=== PATIENT | male | born 1985 | race Caucasian/White ===

== ENCOUNTER 2022-12-11 09:38 | Emergency (ER) | payer OTHER ==
[2022-12-11 09:59] VITALS: BP 121/77; PULSE 80; RESP 18; TEMP 97.9; BMI 34.8
[2022-12-11 11:54] LABS: BASO % 0.2 % (0-2.0); EOS % 1.7 % (0-4.5); HEMATOCRIT 38.8 % (35.4-49); HEMOGLOBIN 12.7 GM/dL (11.7-16.9); LYMPH % 25.7 % (8-40); MCH 26.6 pg (25.7-33.7); MCHC 32.8 g/dl (32.0-35.9); MEAN CELL VOLUME 81.3 fl (80-96); MEAN PLT VOLUME 8.1 fl (7.5-11.1); NEUT % 65.4 % (42.8-82.8); PLATELET COUNT 253 10^3/uL (134-434); RBC 4.77 M/mm3 (4.00-5.60); RDW 13.6 % (11.9-15.9); WHITE BLOOD COUNT 8.8 K/mm3 (4.0-10.0)
[2022-12-11 12:09] LABS: CALCIUM 9.3 mg/dL (8.5-10.1)
[2022-12-11 12:10] LABS: ALBUMIN 4.1 g/dl (3.4-5.0); BLOOD UREA NITROGEN 10.7 mg/dL (7-18)
[2022-12-11 12:11] LABS: URIC ACID 8.1 mg/dL (2.6-7.2)
[2022-12-11 12:14] LABS: BILIRUBIN,TOTAL 0.3 mg/dL (0.2-1)
[2022-12-11 12:15] LABS: TOT PROT 7.8 g/dl (6.4-8.2)
[2022-12-11] MEDS ORDERED: COLCHICINE 0.6 MG CAP PO ONE ×2 (12:20→13:28)
[2022-12-11] MEDS ORDERED: COLCHICINE 0.6 MG TAB ONE ×2 (12:29→13:32)
== END 2022-12-11 13:47 | disposition home or self-care (01) ==
LOC: JER 09:38
DX: M10.071 Idiopathic gout, right ankle and foot (principal)
CPT/HCPCS: 36415; 73630-TC-LT; 80053; 84550; 85025; 99284-25

== ENCOUNTER 2023-10-27 15:10 | Emergency (ER) | payer OTHER ==
[2023-10-27 15:31] VITALS: BP 101/78; PULSE 94; RESP 20; TEMP 98.1; BMI 31.1
[2023-10-27] MEDS ORDERED: KETOROLAC TROMETHAMINE 30 MG/1 ML VIAL ONE (16:40)
[2023-10-27] MEDS: KETOROLAC TROMETHAMINE 15 MG/ML VIAL IM ONE (16:57)
== END 2023-10-27 17:15 | disposition home or self-care (01) ==
LOC: JERFT 15:10
PROC: 3E0233Z Introduction of Anti-inflammatory into Muscle, Percutaneous Approach (ICD-10-PCS; principal; 2023-10-27)
DX: R22.41 Localized swelling, mass and lump, right lower limb (principal); M79.674 Pain in right toe(s); M10.9 Gout, unspecified
CPT/HCPCS: 96372; 99284-25

== ENCOUNTER 2024-07-08 13:14 | Emergency (ER) | payer OTHER ==
[2024-07-08 13:30] VITALS: BP 107/84; PULSE 86; RESP 20; TEMP 98.4; BMI 33.9
[2024-07-08] MEDS ORDERED: FAMOTIDINE 20 MG/50 ML IVPB 20 MG/50 ML MG IVPB ONE (15:02)
[2024-07-08] MEDS ORDERED: MAG HYDROX/AL HYDROX/SIMETH 30 ML UNIT-DOSE CUP ONE (15:02)
[2024-07-08] MEDS: MAG HYDROX/AL HYDROX/SIMETH 30 ML UNIT-DOSE CUP PO ONE (15:26)
[2024-07-08] MEDS: FAMOTIDINE 20 MG/50 ML IVPB 20 MG/50 ML MG IVPB ONE (15:27)
[2024-07-08 15:36] LABS: BASO % 0.1 % (0-2.0); EOS % 0.7 % (0-4.5); HEMATOCRIT 41.6 % (35.4-49); LYMPH % 22.6 % (8-40); MCHC 33.7 g/dl (32.0-35.9); MEAN CELL VOLUME 83.2 fl (80-96); MEAN PLT VOLUME 8.2 fl (7.5-11.1); MONO % 6.3 % (3.8-10.2); NEUT % 70.3 % (42.8-82.8); PLATELET COUNT 273 10^3/uL (134-434); RBC 5.01 M/mm3 (4.00-5.60); RDW 13.4 % (11.9-15.9); WHITE BLOOD COUNT 9.3 K/mm3 (4.0-10.0)
[2024-07-08 15:54] LABS: POTASSIUM 4.2 mmol/L (3.5-5.1)
[2024-07-08 15:56] LABS: ALBUMIN 4.2 g/dl (3.4-5.0)
[2024-07-08 15:57] LABS: CALCIUM 8.8 mg/dL (8.5-10.1)
[2024-07-08 15:58] LABS: BLOOD UREA NITROGEN 12.5 mg/dL (7-18)
[2024-07-08 16:01] LABS: CREATININE 1.6 mg/dL (0.55-1.3)
[2024-07-08 16:02] LABS: BILIRUBIN,TOTAL 0.5 mg/dL (0.2-1)
[2024-07-08 16:05] LABS: TOT PROT 7.6 g/dl (6.4-8.2)
[2024-07-08 16:50] LABS: HIV INTERPRETATION NEGATIVE (NEGATIVE)
== END 2024-07-08 17:39 | disposition home or self-care (01) ==
LOC: JER 13:14
DX: R10.13 Epigastric pain (principal); N17.9 Acute kidney failure, unspecified; R11.0 Nausea
CPT/HCPCS: 36415; 71046-TC-FY; 80053; 83690; 84484; 85025; 86803; 87389; 93005; 93010; 99285-25